=== PATIENT | male | born 1965 | race Caucasian/White ===

== ENCOUNTER 2017-12-22 15:37 | Emergency (ER) | payer OTHER, SELFPAY ==
[2017-12-22 15:59] VITALS: BP 154/99; PULSE 77; RESP 16; TEMP 37; O2SAT 96; BMI 25.7
--- NOTE | 2017-12-22 16:07 | ED_ITS ---
HPI - Extremity Injury (Upper) <Karol Alonso PA-C - Last Filed: 12/22/17 22:00> General Chief Complaint: Extremity Injury, Upper Stated Complaint: right shoulder injury at work Time Seen by Provider: 12/22/17 15:47 Source: patient Mode of arrival: ambulatory Limitations: no limitations History of Present Illness HPI narrative: This 52-year-old male was lying sideways on his right shoulder, stretched out working under a boat when he tried to lift something heavy and felt a pop in the anterior upper part of his shoulder. He states that since then is excruciatingly painful trying to lift his arm though states he can't lift it passively. He states that he really does not have pain at rest. He denies any other injury. Denies neck pain, pain in the elbow, wrist or hand. He does not have paresthesia. He thinks that it is pain, not weakness that keeps him from movement. He denies any other pain or injury Related Data Previous Rx's Medication Instructions Recorded hydrocodone-acetaminophen [[place]] 1 tab PO .hs PRN #8 tab 12/22/17 meloxicam [Mobic] 15 mg PO DAILY #14 tab 12/22/17 Allergies Allergy/AdvReac Type Severity Reaction Status Date / Time No Known Drug Allergies Allergy Verified 12/22/17 15:58 Review of Systems <Karol Alonso PA-C - Last Filed: 12/22/17 22:00> Review of Systems All systems reviewed & are unremarkable except as noted in HPI and below Exam <Karol Alonso PA-C - Last Filed: 12/22/17 22:00> Narrative Exam Narrative: GENERAL APPEARANCE: Patient sitting comfortably, in no distress. LUNGS: Clear to auscultation bilaterally. HEART: Rate and rhythm regular without murmur, normal S1 and S2, no S3 or S4. MUSCULOSKELETAL: There is no visible joint effusion in the upper extremity. Tender over the right anterior shoulder lateral bony prominences most at the AC joint. He is able to adduct fully against resistance, unable to maintain resisted abduction secondary to tenderness. Unable to flex the shoulder past 45 ? secondary to tenderness. Unable to externally rotate or abduct secondary to tenderness. He is able to minimally internally abduct. [employer] strength 5/5 bilaterally EXTREMITIES: Upper extremities no cyanosis or edema, sensation grossly intact Initial Vital Signs Initial Vital Signs: Vital Signs Temperature 98.6 F 12/22/17 15:59 Pulse Rate 77 12/22/17 15:59 Respiratory Rate 16 12/22/17 15:59 Blood Pressure 154/99 H 12/22/17 15:59 Pulse Oximetry 96 12/22/17 15:59 <DO Jeanine Carrillo Last Filed: 12/26/17 01:18> Initial Vital Signs Initial Vital Signs: Vital Signs Temperature 98.6 F 12/22/17 15:59 Pulse Rate 77 12/22/17 15:59 Respiratory Rate 16 12/22/17 15:59 Blood Pressure 154/99 H 12/22/17 15:59 Pulse Oximetry 96 12/22/17 15:59 Course <Karol Alonso PA-C - Last Filed: 12/22/17 22:00> Orders Ordered: Discontinued Medications Ibuprofen (Advil) 800 mg PO NOW ONE Stop: 12/22/17 16:24 Last Admin: 12/22/17 17:03 Dose: 800 mg Vital Signs - 8 hr 12/22/17 15:59 12/22/17 17:40 Temperature 98.6 F Pulse Rate 77 72 Respiratory Rate 16 18 Blood Pressure 154/99 H Blood Pressure [Left Arm] 154/102 H Pulse Oximetry 96 100 <DO Jeanine Carrillo Last Filed: 12/26/17 01:18> Orders Ordered: Discontinued Medications Ibuprofen (Advil) 800 mg PO NOW ONE Stop: 12/22/17 16:24 Last Admin: 12/22/17 17:03 Dose: 800 mg Vital Signs - 8 hr 12/22/17 15:59 12/22/17 17:40 Temperature 98.6 F Pulse Rate 77 72 Respiratory Rate 16 18 Blood Pressure 154/99 H Blood Pressure [Left Arm] 154/102 H Pulse Oximetry 96 100 MDM - Extremity Injury (Upper) <KAMILAH Green Last Filed: 12/22/17 22:00> Imaging Data shoulder: Radiologist's impression: View Report History [address] [address] XRay Report Signed Patient: Sebastián Diaz MR#: [id number] : 1965 Acct:[id number] Age/Sex: 52 / M Date of Service: 12/22/17 Loc: ED Accession Number: [id number] Procedure: XR shoulder RT min 2V Ordering Provider: Karol Alonso P.A-C PROCEDURE: XR SHOULDER RT MIN 2V INDICATIONS: pain after lifting injury TECHNIQUE: 3 views of the shoulder were acquired. COMPARISON: None. FINDINGS: Bones: No fractures or dislocations. No suspicious bony lesions. Visualized ribs appear intact. Soft tissues: No suspicious soft tissue calcifications. IMPRESSION: No acute disease, mild a.c. joint osteoarthritis. Dictated by: Mitul Renteria M.D. on 12/22/2017 at 17:00 Approved by: Mitul Renteria M.D. on 12/22/2017 at 17:01 Discharge Plan Departure Patient Disposition: Home Clinical Impression: Rotator cuff impingement syndrome Discharge Date/Time: 12/22/17 17:47 Interventions: ED Discharge Assessment Last Done: 12/22/17 17:47 Instructions: DI for Rotator Cuff Injury Activity Restrictions/Additional Instructions: As we talked about, it is difficult to fully examine your strength today due to your pain. There was not an acute problem found on your x-ray, however this injury is likely more in the soft tissues, muscles and tendons. This seems to be affecting your rotator cuff muscles. You can keep your arm in the sling as needed for comfort, but take it out at least 3-4 times daily and do the gentle [id number] exercises such as pendulum and while walking that you did for your other shoulder previously. Take the once daily anti-inflammatory meloxicam for pain, and you can add the hydrocodone/acetaminophen at nighttime since that helped you in the past. Please call [facility] tomorrow morning and let them know that you were seen here with shoulder injury and that you need to follow-up there. You should return as we talked about if you have any acutely worsening symptoms in the interim. Prescriptions: New meloxicam [Mobic] 15 mg tablet 15 mg PO DAILY Qty: 14 RF: 0 hydrocodone-acetaminophen [[place]] 7.5-325 mg tablet 1 tab PO .hs PRN (Reason: shoulder pain) Qty: 8 RF: 0 <Mauro Duncan DO - Last Filed: 12/26/17 01:18> Cosign ED Attending Bhavinature Attestation: I was immediately available in the department for consultation. Documentation has been reviewed. I agree with assessment and plan.
--- NOTE | 2017-12-22 16:23 | DI.RAD.S_ITS ---
PROCEDURE: XR SHOULDER RT MIN 2V INDICATIONS: pain after lifting injury TECHNIQUE: 3 views of the shoulder were acquired. COMPARISON: None. FINDINGS: Bones: No fractures or dislocations. No suspicious bony lesions. Visualized ribs appear intact. Soft tissues: No suspicious soft tissue calcifications. IMPRESSION: No acute disease, mild a.c. joint osteoarthritis. Dictated by: Mitul Renteria M.D. on 12/22/2017 at 17:00 Approved by: Mitul Renteria M.D. on 12/22/2017 at 17:01
[2017-12-22] MEDS: IBUPROFEN 400 MG TABLET 800 MG PO (17:03)
[2017-12-22 17:40] VITALS: BP 154/102; PULSE 72; RESP 18; O2SAT 100
== END 2017-12-22 17:47 | disposition home or self-care (01) ==
PROVIDERS: Emergency Provider Internal Medicine
DX: M75.40 Impingement syndrome of unspecified shoulder (principal); X50.9XXA Other and unspecified overexertion or strenuous movements or postures, initial encounter; Y99.0 Civilian activity done for income or pay
CPT/HCPCS: 73030; 99282; 99283